=== PATIENT | female | born 1975 | race Asian ===

== ENCOUNTER 2018-01-13 17:47 | Emergency (ER) | payer MEDICAID ==
[~2018-01-13] VITALS: Ht 152.4 cm; Wt 56.0 kg
[2018-01-13] MEDS ORDERED: ACETAMINOPHEN 325MG TABLET PO STA (23:26)
[2018-01-13 23:41] LABS: CLARITY URINE CLEAR (CLEAR); COLOR URINE YELLOW (YELLOW); KETONES URINE TRACE (NEGATIVE); LEUKOCYTE ESTERASE URINE NEGATIVE (NEGATIVE); NITRITE URINE NEGATIVE (NEGATIVE); OCCULT BLOOD URINE NEGATIVE (NEGATIVE); PROTEIN URINE NEGATIVE (NEGATIVE); SPECIFIC GRAVITY URINE 1.011 (1.005-1.030); UROBILINOGEN URINE 0.2 E.U./dL (0.2-1.0)
[2018-01-13 23:50] LABS: BASOPHILS % 0.9 % (0.0-2.0); EOSINOPHILS % 1.7 % (0.0-5.0); HEMATOCRIT. 35.9 % (36.0-48.0); HEMOGLOBIN. 12.1 g/dL (12.0-16.0); LYMPHOCYTES % 47.7 % (20.0-50.0); MEAN CORPUSCULAR HEMOGLOBIN 29.6 pg (28.0-32.0); MEAN CORPUSCULAR VOLUME 87.8 fL (81.0-99.0); MEAN PLATELET VOLUME 8.6 fl (7.4-10.4); MONOCYTES % 8.6 % (2.0-8.0); NEUTROPHILS % 41.1 % (40.0-76.0); PLATELET 266 x1000/uL (130-400); RED BLOOD CELL COUNT 4.09 mill/uL (4.2-5.4); RED CELL DISTRIBUTION WIDTH 13.2 % (11.6-14.6)
[2018-01-13 23:55] LABS: CHLORIDE 109 mEq/L (98-107); PROTHROMBIN TIME 10.4 sec (9.4-11.6)
[2018-01-14 01:49] VITALS: BP 103/58
== END 2018-01-14 01:49 | disposition home or self-care (01) ==
LOC: ER 17:47
DX: R10.2 Pelvic and perineal pain (principal); Z98.890 Other specified postprocedural states
CPT/HCPCS: 36415; 71045; 74018; 80053; 81003; 81025; 85025; 85610; 99285